=== PATIENT | male | born 1970 | race Caucasian/White ===

== ENCOUNTER 2021-12-03 11:36 | Emergency (ER) | payer OTHER, BC ==
[2021-12-03] MEDS ORDERED: Ketorolac 30 MG/ML SDV IM ONE (13:16)
== END 2021-12-03 13:43 | disposition home or self-care (01) ==
LOC: JP.ED 11:36
DX: S76.312A Strain of muscle, fascia and tendon of the posterior muscle group at thigh level, left thigh, initial encounter (principal); I48.91 Unspecified atrial fibrillation; I10 Essential (primary) hypertension; W22.8XXA Striking against or struck by other objects, initial encounter
CPT/HCPCS: 96372; 99283; J1885